=== PATIENT | male | born 1960 | race Caucasian/White ===

== ENCOUNTER 2017-12-03 18:10 | Emergency (ER) | payer BC ==
[2017-12-03 18:36] VITALS: TEMP 97.8; BMI 29.0
[2017-12-03] MEDS ORDERED: ACETAMINOPHEN 1000 MG/100 ML VIAL (NON FORMULARY) IVPB ONE (18:41)
[2017-12-03] MEDS ORDERED: ONDANSETRON 4 MG/2 ML VIAL IVPUSH ONE (18:41)
[2017-12-03] MEDS ORDERED: FAMOTIDINE 20 MG/50 ML IVPB 20 MG/50 ML MG IVPB ONE ×2 (18:41→19:01)
[2017-12-03] MEDS ORDERED: SODIUM CHLORIDE 0.9% 1000 ML INFUS.BAG IV ONE (18:41)
[2017-12-03] MEDS ORDERED: morphine CARPU-JECT 2 MG/1 ML DISP.SYRIN IVPUSH ONE (18:46)
[2017-12-03 18:52] LABS: PH,URINE 7.5 (4.5-8); URINE APPEARANCE Clear; URINE BILIRUBIN Negative (NEGATIVE); URINE GLUCOSE (UA) Negative (NEGATIVE); URINE KETONE Negative (NEGATIVE); URINE LEUK ESTERASE Negative (NEGATIVE); URINE NITRITE Negative (NEGATIVE)
[2017-12-03 18:59] LABS: URINE BLOOD Trace-intact (NEGATIVE); URINE COLOR YELLOW; URINE PROTEIN 1+ (NEGATIVE)
[2017-12-03] MEDS ORDERED: ONDANSETRON 4 MG/2 ML VIAL ONE (19:01)
[2017-12-03] MEDS ORDERED: ACETAMINOPHEN INJECTION 100 ML IVPB ONE (19:01)
--- NOTE | 2017-12-03 19:28 | PDOC ---
History of Present Illness - General History Source: Patient Exam Limitations: No Limitations - History of Present Illness Travel History: Yes Initial Comments: 12/03/17 20:32 The patient is a 57 year old male with a significant PMH of CAD(stent 10 years ago) who presents to the emergency department with acute right sided abdominal pain earlier today. The patient reports that he was eating a salad earlier today after which his right sided abdominal pain began. The patient reports that he experienced 1 episode of associated diarrhea prior to arriving to the ED. He also reports some nausea. The patient report staking Imodium prior to arriving with no apparent relief. The patient denies any fever, chills or vomiting. He denies and SOB or chest pain. The patient denies any headache or dizziness. He reports some urinary frequency but denies any other urinary symptoms. The patient denies any other complaints. <Justyna Scott - Last Filed: 12/03/17 21:14> <Merced Tobias - Last Filed: 12/05/17 23:49> - General Chief Complaint: Pain, Acute Stated Complaint: ABDOMINAL PAIN Time Seen by Provider: 12/03/17 19:19 Past History <Justyna Scott - Last Filed: 12/03/17 21:14> - Past Medical History Cardiac Disorders: Yes COPD: No - Surgical History Cardiac Surgery: Yes (STENT) - Suicide/Smoking/Psychosocial Hx Smoking History: Never smoked Hx Alcohol Use: No Drug/Substance Use Hx: No Substance Use Type: None <Merced Tobias - Last Filed: 12/05/17 23:49> - Past Medical History Allergies/Adverse Reactions: Allergies Allergy/AdvReac Type Severity Reaction Status Date / Time No Known Allergies Allergy Verified 12/03/17 18:24 Home Medications: Ambulatory Orders Hyoscyamine Odt [Levsin Odt -] 0.125 mg PO BID PRN #10 tab.rapdis 12/03/17 Loperamide HCl [Imodium -] 2 mg PO ONCE 12/03/17 Review of Systems - Review of Systems Able to Perform ROS?: Yes Comments:: 12/03/17 20:32 GENERAL/CONSTITUTIONAL: No fever or chills. No weakness. HEAD, EYES, EARS, NOSE AND THROAT: No change in vision. No ear pain or discharge. No sore throat. CARDIOVASCULAR: No chest pain or shortness of breath. RESPIRATORY: No cough, wheezing, or hemoptysis. GASTROINTESTINAL: (+)right sided abdominal pain, nausea, diarrhea. No vomiting , or constipation. GENITOURINARY: No dysuria, frequency, or change in urination. MUSCULOSKELETAL: No joint or muscle swelling or pain. No neck or back pain. SKIN: No rash NEUROLOGIC: No headache, vertigo, loss of consciousness, or change in strength/ sensation. ENDOCRINE: No increased thirst. No abnormal weight change. HEMATOLOGIC/LYMPHATIC: No anemia, easy bleeding, or history of blood clots. ALLERGIC/IMMUNOLOGIC: No hives or skin allergy. <Justyna Scott - Last Filed: 12/03/17 21:14> *Physical Exam - Vital Signs Last Vital Signs Temp Pulse Resp BP Pulse Ox 97.8 F 75 18 203/113 100 12/03/17 18:18 12/03/17 18:18 12/03/17 18:18 12/03/17 18:18 12/03/17 18:18 - Physical Exam Comments: 12/03/17 20:32 GENERAL: Awake, alert, and fully oriented, in no acute distress HEAD: No signs of trauma EYES: PERRLA, EOMI, sclera anicteric, conjunctiva clear ENT: Auricles normal inspection, hearing grossly normal, nares patent, oropharynx clear without exudates. Moist mucosa NECK: Normal ROM, supple, no lymphadenopathy, JVD, or masses LUNGS: Breath sounds equal, clear to auscultation bilaterally. No wheezes, and no crackles HEART: Regular rate and rhythm, normal S1 and S2, no murmurs, rubs or gallops ABDOMEN: (+) moderately distended , epigastric right upper quadrant tenderness. Belly soft, nontender, normoactive bowel sounds. No guarding, no rebound. No masses EXTREMITIES: Normal range of motion, no edema. No clubbing or cyanosis. No cords, erythema, or tenderness NEUROLOGICAL: Cranial nerves II through XII grossly intact. Normal speech, normal gait SKIN: Warm, Dry, normal turgor, no rashes or lesions noted. <Justyna Scott - Last Filed: 12/03/17 21:14> - Vital Signs Last Vital Signs Temp Pulse Resp BP Pulse Ox 97.8 F 75 18 203/113 100 12/03/17 18:18 12/03/17 18:18 12/03/17 18:18 12/03/17 18:18 12/03/17 18:18 <Merced Tobias - Last Filed: 12/05/17 23:49> ED Treatment Course - LABORATORY CBC & Chemistry Diagram: 12/03/17 19:14 12/03/17 19:14 - ADDITIONAL ORDERS Additional order review: Laboratory Results 12/03/17 12/03/17 19:14 18:25 Sodium 136 Potassium 3.8 Chloride 102 Carbon Dioxide 25 Anion Gap 9 BUN 15 Creatinine 0.9 Creat Clearance w eGFR > 60 Random Glucose 173 H Calcium 9.2 Magnesium 2.0 Total Bilirubin 1.1 H AST 279 H ALT 204 H Alkaline Phosphatase 118 H Total Protein 7.8 Albumin 4.3 Urine Color Yellow Urine Appearance Clear Urine pH 7.5 Ur Specific [place] 1.020 Urine Protein 1+ H Urine Glucose (UA) Negative Urine Ketones Negative Urine Blood Trace-intact H Urine Nitrite Negative Urine Bilirubin Negative Urine Urobilinogen 1.0 Ur Leukocyte Esterase Negative 12/03/17 19:14 RBC 5.35 MCV 86.3 MCHC 34.5 RDW 12.6 MPV 8.5 Neutrophils % 78.0 Lymphocytes % 13.5 Monocytes % 7.7 Eosinophils % 0.5 Basophils % 0.3 - Medications Given in the ED: ED Medications Discontinued Medications Generic Name Dose Route Start Last Admin Trade Name Kuldeep PRN Reason Stop Dose Admin Acetaminophen 1,000 mg 12/03/17 18:41 12/03/17 19:10 Ofirmev Injection - IVPB 12/03/17 18:42 1,000 mg ONCE ONE Administration Famotidine/Sodium Chloride 20 mg in 50 mls @ 100 mls/hr 12/03/17 18:41 19:07 Pepcid 20 Mg Premixed Ivpb - IVPB 12/03/17 19:10 100 mls/hr ONCE ONE Administration Ondansetron HCl 4 mg 12/03/17 18:41 12/03/17 19:07 Zofran Injection IVPUSH 12/03/17 18:42 4 mg ONCE ONE Administration Sodium Chloride 1,000 ml 12/03/17 18:41 12/03/17 19:07 Normal Saline - IV 12/03/17 18:42 1,000 ml ONCE ONE Administration <Justyna Scott - Last Filed: 12/03/17 21:14> - LABORATORY CBC & Chemistry Diagram: 12/03/17 19:14 12/03/17 19:14 - ADDITIONAL ORDERS Additional order review: Laboratory Results 12/03/17 18:25 Urine Color Yellow Urine Appearance Clear Urine pH 7.5 Ur Specific [place] 1.020 Urine Protein 1+ H Urine Glucose (UA) Negative Urine Ketones Negative Urine Blood Trace-intact H Urine Nitrite Negative Urine Bilirubin Negative Urine Urobilinogen 1.0 Ur Leukocyte Esterase Negative - Medications Given in the ED: ED Medications Discontinued Medications Generic Name Dose Route Start Last Admin Trade Name Kuldeep PRN Reason Stop Dose Admin Acetaminophen 1,000 mg 12/03/17 18:41 12/03/17 19:10 Ofirmev Injection - IVPB 12/03/17 18:42 1,000 mg ONCE ONE Administration Famotidine/Sodium Chloride 20 mg in 50 mls @ 100 mls/hr 12/03/17 18:41 19:07 Pepcid 20 Mg Premixed Ivpb - IVPB 12/03/17 19:10 100 mls/hr ONCE ONE Administration Ondansetron HCl 4 mg 12/03/17 18:41 12/03/17 19:07 Zofran Injection IVPUSH 12/03/17 18:42 4 mg ONCE ONE Administration Sodium Chloride 1,000 ml 12/03/17 18:41 12/03/17 19:07 Normal Saline - IV 12/03/17 18:42 1,000 ml ONCE ONE Administration <Merced Tobias - Last Filed: 12/05/17 23:49> Progress Note - Progress Note Progress Note: Documentation has been prepared under my direction and personally reviewed by me in its entirety. I attest that this documented accurately reflects all work, treatment, procedures and medical decision making performed by me. <Merced Tobias - Last Filed: 12/05/17 23:49> Medical Decision Making - Medical Decision Making As noted above, this 57-year-old man presents with abdominal cramping soon after eating a salad in a restaurant. The patient states that he has a history of abdominal pain/diarrhea, especially after eating certain foods. When patient felt the abdominal cramping, he empirically took Imodium. He had one loose stool after this but presented here because of persistent pain. Exam as noted. After the patient received IV fluids/acetaminophen IV/Zofran IV he had significant relief in his symptoms. Lab values notable for white blood cell count of 13,500; he also had mild elevation of transaminases and alkaline phosphatase. Abdominal/pelvic CT did not show any specific abnormality except for mild inflammation of colon, consistent with nonspecific colitis. Patient was given Levsin 0.125 milligrams ODT after he had mild recurrent abdominal cramping. He had marked relief in the cramping after this. The patient will be discharged with follow-up with his general doctor within the next 48 hours. Patient should maintain clear liquid diet and advance diet slowly Prescription for Levsin ODT 0.125 mg will be provided for the patient. He should return to the emergency room if he has recurrent pain or experiences fever/vomiting <Merced Tobias - Last Filed: 12/05/17 23:49> *DC/Admit/Observation/Transfer - Attestations Scribe Attestion: 12/03/17 20:32 Documentation prepared by Justyna Scott, acting as biomedical equipment tech for Merced Tobias MD. <Justyna Scott - Last Filed: 12/03/17 21:14> <Merced Tobias - Last Filed: 12/05/17 23:49> Diagnosis at time of Disposition: Gastroenteritis - Discharge Dispostion Disposition: HOME Condition at time of disposition: Stable - Prescriptions Prescriptions: Hyoscyamine Odt [Levsin Odt -] 0.125 mg PO BID PRN #10 tab.rapdis PRN Reason: Pain - Patient Instructions Printed Discharge Instructions: DI for Bacterial Gastroenteritis -- Adult Additional Instructions: clear liquids, advance diet cautiously Levsin ODT 0.125mg as needed for abdominal cramping Return to ER if you have persistent vomiting or severe, persistent abdominal pain Follow-up with your general medical doctor within the next 48 hours
[2017-12-03 19:31] LABS: BASO % 0.3 % (0-2.0); EOS % 0.5 % (0-4.5); HEMATOCRIT 46.2 % (35.4-49); HEMOGLOBIN 15.9 GM/dl (11.7-16.9); LYMPH % 13.5 % (8-40); MCH 29.8 pg (25.7-33.7); MCHC 34.5 g/dl (32.0-35.9); MEAN CELL VOLUME 86.3 fl (80-96); MEAN PLT VOLUME 8.5 fl (7.5-11.1); MONO % 7.7 % (3.8-10.2); PLATELET COUNT 312 K/MM3 (134-434); RBC 5.35 M/mm3 (4.00-5.60); RDW 12.6 % (11.9-15.9); WHITE BLOOD COUNT 13.6 K/mm3 (4.0-10.8)
[2017-12-03 19:40] LABS: ALBUMIN 4.3 g/dl (3.5-5.0); ALK PHOS 118 U/L (32-92); ANION GAP 9 (8-16); BILIRUBIN,TOTAL 1.1 mg/dl (0.2-1.0); BLOOD UREA NITROGEN 15 mg/dl (7-18); CALCIUM 9.2 mg/dl (8.4-10.2); CHLORIDE 102 mmol/L (98-107); CO2 25 mmol/L (22-28); CREATININE 0.9 mg/dl (0.6-1.3); GLUCOSE,RANDOM 173 mg/dl (74-106); POTASSIUM 3.8 mmol/L (3.5-5.1); SGOT/AST 279 U/L (10-42); SGPT/ALT 204 U/L (10-40); SODIUM 136 mmol/L (136-145); TOT PROT 7.8 g/dl (6.4-8.3)
[2017-12-03 20:33] LABS: LIPASE 184 U/L (73-393)
[2017-12-03 20:46] LABS: AMORP PHOS MANY /hpf (NONE SEEN); URINE BACTERIA MODERATE /hpf (NEGATIVE); URINE RBC 0-2 /hpf (0-3); URINE WBC 0-1 (0-2)
[2017-12-03] MEDS ORDERED: HYOSCYAMINE SULFATE 0.125 MG *ODT PO ONE (22:03)
[2017-12-03] MEDS ORDERED: HYOSCYAMINE SULFATE 0.125 MG *ODT ONE ×2 (22:04→22:38)
[2017-12-03 22:35] VITALS: BP 164/96; PULSE 74
== END 2017-12-03 22:41 | disposition home or self-care (01) ==
LOC: FER 18:10
PROC: 3E033NZ Introduction of Analgesics, Hypnotics, Sedatives into Peripheral Vein, Percutaneous Approach (ICD-10-PCS; principal; 2017-12-03)
PROC: 3E033GC Introduction of Other Therapeutic Substance into Peripheral Vein, Percutaneous Approach (ICD-10-PCS; 2017-12-03)
PROC: 3E0337Z Introduction of Electrolytic and Water Balance Substance into Peripheral Vein, Percutaneous Approach (ICD-10-PCS; 2017-12-03)
DX: K52.9 Noninfective gastroenteritis and colitis, unspecified (principal)
CPT/HCPCS: 36415; 71045-TC-FY; 74177-TC; 80053; 81003; 81015; 83690; 83735; 85025; 87086; 99283-25; J0131; J7030